=== PATIENT | male | born 1935 | race Caucasian/White ===

== ENCOUNTER 2017-08-03 05:21 | Inpatient (IN) | payer OTHER ==
[2017-07-29 13:31] LABS: HEMATOCRIT 42.7 % (42.0-52.0); HEMOGLOBIN 14.6 gm/dL (14.0-18.0); MCH 31.7 pg (26.0-34.0); MCHC 34.3 g/dL (28.0-37.0); MCV 92.4 fL (80.0-100.0); RBC 4.62 mil/uL (4.50-6.00); RDW 14.9 % (10.5-14.5); WBC 6.6 thou/uL (4.0-11.0)
[2017-07-29 13:37] LABS: ALBUMIN 3.8 g/dL (3.4-5.0); CALCIUM 8.9 mg/dL (8.5-10.1); CREATININE 1.1 mg/dL (0.7-1.3); POTASSIUM 4.3 mmol/L (3.5-5.1)
[2017-07-29 13:45] LABS: PROTIME 10.5 Seconds (9.3-11.4)
[2017-07-29 14:05] LABS: URINE BILIRUBIN NEGATIVE (Negative); URINE BLOOD NEGATIVE (Negative); URINE CLARITY CLEAR; URINE COLOR YELLOW; URINE GLUCOSE-RANDOM* NEGATIVE (Negative); URINE KETONES NEGATIVE (Negative); URINE PROTEIN (DIPSTICK) NEGATIVE (Negative); URINE SPECIFIC GRAVITY 1.025 (1.005-1.035)
[2017-07-29 14:06] LABS: URINE NITRITE-REFLEX NEGATIVE (Negative); URINE UROBILINOGEN 0.2 E.U./dl (0.2-1.0)
[~2017-08-03] VITALS: Ht 195.6 cm; Wt 131.5 kg
--- NOTE | ~2017-08-03 | EKG ---
[place] [address] [facility] [place] [address] ELECTROCARDIOGRAM REPORT Name: JOSE ANTONIOFERNY Room #: 401-I ADM IN M.R.#: [id number] Admission: 08/03/17 Attend Phys: Carlos Olivo MD Discharge: Date of : 37 Report #: [id number] THIS REPORT FOR: //name// [facility] Test Date: 2017-08-03 Test Time: 15:29:53 Pat Name: FERNY BRADY Department: Room: 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 : 1935 Requested By: Purvi Valencia Order Number: [id number] MD: Fortino Holbrook Measurements Intervals [place] Rate: 77 P: 35 [place]: 197 QRS: -16 QRSD: 115 T: 106 QT: 406 QTc: 460 Interpretive Statements Sinus rhythm Atrial premature complex Incomplete right bundle branch block Inferior infarct, old Compared to ECG 07/29/2017 13:24:02 Atrial premature complex(es) now present Electronically Signed On 08-04-2017 7:16:59 SOLID WASTE ANALYST by Fortino Holbrook [email or web address] <ELECTRONICALLY SIGNED> By: Fortino Holbrook MD, [facility] 08/04/17 0716 1529 1529 Fortino Holbrook MD, [facility] /EPI
--- NOTE | ~2017-08-03 | O ---
[facility] [place] [address] OPERATIVE REPORT Name: FERNY BRADY Room #: 401-I [facility] IN M.R.#: [id number] Admission: 08/03/17 Attend Phys: Carlos Olivo MD Discharge: Date of : 37 Report #: [id number] THIS REPORT FOR: //name// CC: Carlos Katz DATE OF SERVICE: 08/03/2017 PREOPERATIVE DIAGNOSIS: Right hip osteoarthritis. POSTOPERATIVE DIAGNOSIS: Right hip osteoarthritis. PROCEDURE: Right total hip arthroplasty. SURGEON: Carlos Olivo MD. HISTORY INSTRUCTOR: Allegra Osman PA-C. INDICATIONS FOR HISTORY INSTRUCTOR: Throughout the case, extensive retraction and manipulation of the hip including reduction and dislocation of the hip was required. This was afforded to me by my assistant food service director. ANESTHESIA: General endotracheal. IMPLANTS: [employer]hew size 17 high offset Synergy press fit stem, a size 62 R3 acetabular cup with 1 acetabular screw and a size 40+0 cobalt chrome head. ESTIMATED BLOOD LOSS: 150 mL. COMPLICATIONS: None. SPECIMENS: None. CONDITION UPON LEAVING THE OPERATING ROOM: Stable. INDICATION FOR PROCEDURE: The patient is an 81-year-old gentleman with severe right hip osteoarthritis. He had failed conservative treatment for this and after discussion with him, he elected for right total hip arthroplasty. DESCRIPTION OF PROCEDURE: Risks, benefits, alternatives, complications were discussed in detail with the patient including but not limited to risk of anesthesia, risk of damage to nerves, arteries, blood vessels, risk for infection, bleeding, risk for continued hip pain, leg length discrepancy, instability and need for reoperation. Informed consent was obtained from the patient. Right hip was appropriately marked in the preoperative holding area. He was brought to the operating room and placed in the supine position on the [address] [address] OPERATIVE REPORT Name: FERNY BRADY Room #: 401-I [facility] IN M.R.#: [id number] Admission: 08/03/17 Attend Phys: Carlos Olivo MD Discharge: Date of : 37 Report #: [id number] operating room table. General endotracheal anesthesia was induced without complication. IV clindamycin was given for preoperative antibiotics. He was placed in the left lateral decubitus position with the right hip uppermost. Right hip and lower extremity were prepped and draped in normal sterile fashion. Timeout was performed properly identifying the patient, procedure as well as instrumentation. All in the operating room were in agreement. Standard posterior approach to the hip was made with 10 blade through the skin. Dissection was taken down to fascia with Bovie cautery and fascia was cleaned off with Nance elevator. Fresh 10 blade was used to make a fascial incision. This was taken proximally and distally with curved Mcclendon scissor. Charnley retractor was placed. Trochanteric bursa was taken down with Bovie cautery. Piriformis tendon was tagged, identified and taken down with Bovie. Short external rotators were also taken down with Bovie cautery. Capsulotomy was made and capsule ends were tagged for later repair. The hip was dislocated and femoral neck cut was made 1 cm proximal to lesser trochanter based on preoperative templating. Femoral head was removed. Deep acetabular retractors were placed and labrum was removed sharply. Pulvinar was removed with Bovie cautery. Acetabulum was then sequentially reamed up to a size 62, at which point, there was excellent bleeding cancellous bone. A size 61 trial cup was placed, found to have a good fit. A final size 62 R3 acetabular cup was then seated and malleted in place. One acetabular screw was placed for backup fixation. Polyethylene liner for a size 40 head was placed. Attention was turned to the femur. This was reamed and broached up to a size 17, at which point, the size 17 broach was stable. This was trialed with a high offset neck and a 40+0 head. Hip was reduced, taken through range of motion, found to be stable, found to have equal leg lengths. Hip was dislocated and the broach was removed. Final size 17 high offset Synergy stem was placed and trialed again with a 40+0 head. Hip was reduced, taken through range of motion, found to be stable, found to have equal leg lengths. Hip was dislocated once again and the trial head was removed. A final size 40+4 cobalt chrome head was then placed. Hip again was reduced, taken through range of motion, found to be stable, found to have equal leg lengths. Periarticular injection consisting of morphine, ropivacaine, epinephrine and Toradol was placed around the hip joint and capsule. A gram of vancomycin was placed deep in the hip joint. The capsule and piriformis were repaired with 0 FiberWire. The fascia was closed with 0 Vicryl, skin was closed with 2-0 Vicryl, 3-0 Monocryl. Dermabond and DAYANARA dressing was applied. The patient tolerated this procedure well and went to the recovery room under the care of anesthesia postoperatively. <ELECTRONICALLY SIGNED> By: Carlos Olivo MD 08/04/17 0724 1509 1534 Carlos Olivo MD /nt
--- NOTE | ~2017-08-03 | EKG ---
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: KWAKU RUELAS : 1935 Requested By: Carlos Olivo Order Number: [id number] MD: Fortino Holbrook Measurements Intervals [place] Rate: 68 P: 52 [place]: 207 QRS: -35 QRSD: 102 T: 66 QT: 414 QTc: 441 Interpretive Statements Sinus rhythm Cannot rule out Inferior infarct, old No previous ECG available for comparison Electronically Signed On 07-30-2017 8:37:25 ROCK CRUSHER OPERATOR by Fortino Holbrook [email or web address] <ELECTRONICALLY SIGNED> By: Fortino Holbrook MD, [facility] 07/30/17 0837 1324 1324 Fortino Holbrook MD, [facility] /EPI
[~2017-08-03 05:21] MED LIST: ALEVE220 MG PO; ASPIRIN325 PO; FIBERCON625 M1 PO; FISH OIL 1,001000 M2 PO; FLOMAX0.4 MG PO; LOPRESSOR25 PO; SINUS 12 HOUR120 MG PO; VITAMIN D31000 UNIT PO; ZOCOR20 MG PO
[2017-08-03 12:15] VITALS: BP 133/77
[2017-08-03 20:00] VITALS: BP 134/75
[2017-08-04] VITALS: BP 122/65
[2017-08-04 03:57] VITALS: BP 126/64
[2017-08-04 05:30] LABS: HEMATOCRIT 35.6 % (42.0-52.0); MCH 31.3 pg (26.0-34.0); MCHC 33.9 g/dL (28.0-37.0); MCV 92.5 fL (80.0-100.0); RBC 3.84 mil/uL (4.50-6.00); RDW 14.5 % (10.5-14.5); WBC 9.3 thou/uL (4.0-11.0)
[2017-08-04 08:08] VITALS: BP 115/70
[2017-08-04] MEDS ORDERED: HYDROCODON-ACE1 EAC7 PO (11:42)
[2017-08-04] MEDS ORDERED: TRI-BUFFERED A325 M1 PO (11:46)
[2017-08-04 13:42] VITALS: BP 115/70
== END 2017-08-04 14:18 | disposition home or self-care (01) | DRG 470 ==
LOC: TBA 05:21 → 4N 05:21 → PRE 05:24 → 4N 19:06 → ENTRNSPT 08-04 14:08 → EDTRNSPTSTS 08-04 14:12 → 4N 08-04 14:18
PROVIDERS: Orthopaedic Surgery
PROC: 0SR902A Replacement of Right Hip Joint with Metal on Polyethylene Synthetic Substitute, Uncemented, Open Approach (ICD-10-PCS; principal; 2017-08-03)
DX: M16.11 Unilateral primary osteoarthritis, right hip (principal)
CPT/HCPCS: 10790; 50010; 50101; 50382; 50414; 51412; 51771; 53000; 53078; 53367; 54118; 56524; 56527; 56528; 56530; 57095; 62110; 62900; 70005

== ENCOUNTER → 2017-08-20 | Outpatient (CLI) | payer OTHER ==
[~2017-08-20] MED LIST changes: +HYDROCODON-ACE1 EAC7 PO; +TRI-BUFFERED A325 M1 PO
== END ==
LOC: ULTRA 12:37
DX: M79.604 Pain in right leg (principal); M79.89 Other specified soft tissue disorders

== ENCOUNTER → 2017-09-14 | Outpatient (CLI) | payer OTHER | LOC: CAT 10:55 | DX: M16.11 Unilateral primary osteoarthritis, right hip (principal) ==

== ENCOUNTER → 2018-06-04 | Outpatient (CLI) | payer OTHER | LOC: RAD 10:36 | DX: R92.8 Other abnormal and inconclusive findings on diagnostic imaging of breast (principal); N62 Hypertrophy of breast ==